=== PATIENT | female | born 1990 | race Caucasian/White ===

== ENCOUNTER 2016-06-18 13:20 | Observation (INO) | payer MEDICAID ==
[~2016-06-18] VITALS: Ht 150 cm; Wt 83.0 kg
[2016-06-18 13:47] VITALS: BP 111/64
[2016-06-18] MEDS ORDERED: NATURAL IRON65 MG PO (13:51)
[2016-06-18] MEDS ORDERED: BETAMETH ACET/BETAMETH NA PH 30 MG/5 ML VIAL IM ONE (15:09)
[2016-06-18] MEDS ORDERED: TERBUTALINE 2.5 MG TAB ONE ×2 (15:10→19:35)
[2016-06-18] MEDS: BETAMETH ACET/BETAMETH NA PH 30 MG/5 ML VIAL IM PRN (15:16)
[2016-06-18] MEDS: TERBUTALINE 2.5 MG TAB PO SCH ×2 (15:16→20:01)
[2016-06-18] MEDS: LACTATED RINGERS 1,000 ML IV SCH ×2 (15:21→22:55)
[2016-06-19] MEDS ORDERED: TERBUTALINE 2.5 MG TAB ONE ×4 (00:07→12:03)
[2016-06-19] MEDS: TERBUTALINE 2.5 MG TAB PO SCH ×2 (00:12→04:01)
[2016-06-19] MEDS ORDERED: BETAMETH ACET/BETAMETH NA PH 30 MG/5 ML VIAL IM ONE (03:22)
[2016-06-19] MEDS: BETAMETH ACET/BETAMETH NA PH 30 MG/5 ML VIAL IM PRN (03:27)
[2016-06-19] MEDS: LACTATED RINGERS 1,000 ML IV SCH (06:08)
--- NOTE | 2016-06-19 08:22 | NUR ---
PATIENT HAS BEEN SCREENED AND CATEGORIZED LOW NUTRITION RISK. PATIENT WILL BE SEEN WITHIN 7 DAYS OF ADMISSION. 06/25/[address]
[2016-06-19] MEDS ORDERED: BRETHINE5 MG PO ×2 (13:34)
== END 2016-06-19 14:00 | disposition home or self-care (01) ==
LOC: MLD 13:20 → MFCC 14:13
PROVIDERS: ADMIT Obstetrics & Gynecology; ATTEND Obstetrics & Gynecology
DX: R10.9 Unspecified abdominal pain (principal); Z3A.30 30 weeks gestation of pregnancy
CPT/HCPCS: 36415; 51702; 76805; 81001; 82731; 85025; 85379; 85384; 85610; 85730; 96360; 96361; 96372; G0378; J0702; J7120; Q0092

== ENCOUNTER 2016-07-30 18:59 | Inpatient (IN) | payer MEDICAID ==
[~2016-07-30] VITALS: Ht 165.1 cm; Wt 86.2 kg
[~2016-07-30 18:59] MED LIST: BRETHINE5 MG PO; NATURAL IRON65 MG PO
[2016-07-30] MEDS ORDERED: AMPICILLIN 2,000 MG VIAL ONE ×2 (19:57→23:44)
[2016-07-30] MEDS ORDERED: BETAMETH ACET/BETAMETH NA PH 30 MG/5 ML VIAL IM ONE ×2 (19:57→20:05)
[2016-07-30] MEDS ORDERED: TERBUTALINE 1 MG/ML VIAL SUBQ ONE (19:58)
[2016-07-30] MEDS ORDERED: LACTATED RINGERS 500 ML IV SCH (20:00)
[2016-07-30] MEDS ORDERED: OXYTOCIN 10 UNITS/ML VIAL IM SCH (20:00)
[2016-07-30] MEDS ORDERED: NALBUPHINE HYDROCHLORIDE 10 MG/ML VIAL IVP PRN (20:00)
[2016-07-30] MEDS ORDERED: PROMETHAZINE 25 MG/ML VIAL IVP PRN (20:00)
[2016-07-30] MEDS ORDERED: OXYTOCIN 20 UNITS/LR PREMIX 1,000 ML IV SCH (20:00)
[2016-07-30] MEDS ORDERED: AMPICILLIN 2,000 MG in NACL 0.9% MINI-BAG PLUS 100 ML IV SCH (20:00)
[2016-07-30] MEDS: LACTATED RINGERS 1,000 ML IV SCH (20:23)
[2016-07-30] MEDS ORDERED: LIDOCAINE 1% 500 MG/50 ML VIAL INJ SCH (20:40)
[2016-07-30] MEDS ORDERED: OXYTOCIN 20 UNITS/LR PREMIX 1,000 ML IV ONE (20:45)
[2016-07-30] MEDS ORDERED: LIDOCAINE 1% 50 ML ONE (20:46)
[2016-07-30] MEDS: TERBUTALINE 1 MG/ML VIAL SUBQ SCH ×2 (20:50→21:24)
[2016-07-30] MEDS ORDERED: OXYTOCIN 10 UNITS/ML VIAL ONE (21:27)
[2016-07-30 21:33] VITALS: BP 116/71
[2016-07-30] MEDS ORDERED: PRENATAL VITAMI1 TA2 PO (21:38)
[2016-07-31] MEDS ORDERED: AMPICILLIN 2,000 MG in NACL 0.9% 100 ML IV SCH
[2016-07-31] MEDS ORDERED: AMPICILLIN 1,000 MG in NACL 0.9% MINI-BAG PLUS 50 ML IV SCH
[2016-07-31] MEDS ORDERED: NALBUPHINE HYDROCHLORIDE 10 MG/ML VIAL ONE (00:35)
[2016-07-31] MEDS ORDERED: PROMETHAZINE 25 MG/ML VIAL ONE (00:36)
[2016-07-31] MEDS ORDERED: AMPICILLIN 2,000 MG VIAL ONE (03:50)
[2016-07-31] MEDS ORDERED: oxyCODONE/APAP 5/325 MG 1 TAB TAB PO PRN (04:40)
[2016-07-31] MEDS ORDERED: MEASLES, MUMPS, AND RUBELLA 1 VIAL SQVAC PRN (04:40)
--- NOTE | 2016-07-31 08:13 | NUR ---
PATIENT HAS BEEN SCREENED AND CATEGORIZED LOW NUTRITION RISK. PATIENT WILL BE SEEN WITHIN 7 DAYS OF ADMISSION. 08/06/[address]
[2016-08-01] MEDS: LACTATED RINGERS 1,000 ML IV SCH (08:21)
[2016-08-01] MEDS ORDERED: PROPOFOL 200 MG/20 ML VIAL IV ONE (11:00)
[2016-08-01] MEDS ORDERED: SUCCINYLCHOLINE CHLORIDE 200 MG/10 ML VIAL IV ONE (11:00)
[2016-08-01] MEDS ORDERED: ROCURONIUM 50 MG/5 ML VIAL IV ONE (11:00)
[2016-08-01] MEDS ORDERED: DESFLURANE 240 ML BTL INH ONE (11:00)
[2016-08-01] MEDS ORDERED: ONDANSETRON 4 MG/2 ML VIAL IVP ONE (11:00)
[2016-08-01] MEDS ORDERED: fentaNYL 0.05 MG/ML VIAL ONE (11:14)
[2016-08-01] MEDS ORDERED: MIDAZOLAM 2 MG/2 ML VIAL ONE (11:14)
[2016-08-01] MEDS ORDERED: MORPHINE SULFATE 4 MG/ML SYR ONE ×3 (11:14→14:14)
[2016-08-01] MEDS ORDERED: MORPHINE SULFATE 4 MG/ML SYR IVP PRN ×2 (11:45)
[2016-08-01] MEDS ORDERED: MIDAZOLAM 2 MG/2 ML VIAL IV ONE (11:45)
[2016-08-01] MEDS ORDERED: MORPHINE SULFATE 2 MG/ML SYR IVP PRN (11:45)
[2016-08-01] MEDS ORDERED: METOCLOPRAMIDE 10 MG/2 ML INJ VIAL IVP PRN (11:45)
[2016-08-01] MEDS ORDERED: LACTATED RINGERS 1,000 ML IV SCH (13:18)
[2016-08-01] MEDS ORDERED: oxyCODONE/APAP 5/325 MG 1 TAB TAB PO PRN (13:20)
[2016-08-01] MEDS: IBUPROFEN 600 MG TAB PO PRN (21:25)
[2016-08-02] MEDS: IBUPROFEN 600 MG TAB PO PRN ×2 (01:40→20:47)
== END 2016-08-02 22:48 | disposition home or self-care (01) | DRG 541 ==
LOC: OBSVTOIN 18:59 → MLD 18:59 → MFCC 07-31 06:25
PROVIDERS: ADMIT Obstetrics & Gynecology; ATTEND Obstetrics & Gynecology
PROC: 10E0XZZ Delivery of Products of Conception, External Approach (ICD-10-PCS; principal; 2016-07-31)
PROC: 10907ZC Drainage of Amniotic Fluid, Therapeutic from Products of Conception, Via Natural or Artificial Opening (ICD-10-PCS; 2016-07-31)
PROC: 0UB70ZZ Excision of Bilateral Fallopian Tubes, Open Approach (ICD-10-PCS; 2016-08-01)
PROC: 3E0234Z Introduction of Serum, Toxoid and Vaccine into Muscle, Percutaneous Approach (ICD-10-PCS; 2016-08-02)
DX: O60.14X0 Preterm labor third trimester with preterm delivery third trimester, not applicable or unspecified (principal); O69.1XX0 Labor and delivery complicated by cord around neck, with compression, not applicable or unspecified; Z3A.36 36 weeks gestation of pregnancy; Z37.0 Single live birth; Z23 Encounter for immunization; Z30.2 Encounter for sterilization